=== PATIENT | female | born 2000 | race Caucasian/White ===

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

== ENCOUNTER 2023-08-16 11:40 | Outpatient (CLI) | payer MEDICAID ==
[~2023-08-16] VITALS: Ht 162.6 cm; Wt 70.9 kg
--- NOTE | 2023-08-16 12:00 | NUR ---
PT AMBULATORY TO UNIT WITH SPOUSE AND CHILD. INFORMED PT THAT CHILDREN ARE NOT ALLOWED SO IF SHE STAYS, THEY NEED TO MAKE ARANGEMENTS. PT AGREED. REPORTS CTX Q5 MINUTES, LOF, POSITIVE MOVEMENT. NO VAGINAL BLEEDING. SVE 3/-3, AMNITRACE NEGATIVE. PT TOLERATED WELL. VS STABLE. EFM CAT 1.
[2023-08-16] MEDS ORDERED: PRENATAL TABLET PO (12:17)
[2023-08-16] MEDS ORDERED: LR 1,000 ML IV PRN (12:30)
[2023-08-16 13:00] VITALS: BP 134/78; PULSE 91; TEMP 98
--- NOTE | 2023-08-16 13:00 | NUR ---
DR. ZELAYA ON UNIT. DICUSSED UNCHANGED SVE. DR. ZELAYA GAVE D/C ORDER. DISCUSSED PT APT THIS AFTERNOON IN OFFICE, TOLD RN PT COULD CANCEL APT SINCE SHE WAS SEEN TODAY.
--- NOTE | 2023-08-16 13:32 | NUR ---
TOLD PT TO CALL AND COME BACK TO HOSPITAL IF SHE HAS BRIGHT RED BLEEDING, PAIN IN HER ABDOMEN THAT DOES NOT COME IN "WAVES" LIKE CONTRACTIONS, DECREASED FM, LOF, OR INCREASE IN CTX PAIN AND FREQUENCY.
== END 2023-08-16 13:10 | disposition home or self-care (01) ==
LOC: LDRO 11:40
DX: Z34.93 Encounter for supervision of normal pregnancy, unspecified, third trimester (principal); Z3A.38 38 weeks gestation of pregnancy

== ENCOUNTER 2023-08-17 02:18 | Inpatient (IN) | payer MEDICAID ==
[~2023-08-17] VITALS: Ht 162.6 cm; Wt 71.0 kg
[2023-08-17] VITALS (21 sets, daily range): BP systolic 121–148; BP diastolic 62–99; PULSE 57–94; TEMP 97.8–98.7
[~2023-08-17 02:18] MED LIST changes: +PRENATAL TABLET PO
[2023-08-17] MEDS ORDERED: LR 1,000 ML IV SCH ×2 (03:30→04:00)
[2023-08-17] MEDS ORDERED: Azithromycin 500 MG in NS 250 ML IV ONE (03:30)
[2023-08-17] MEDS ORDERED: Phenylephrine 10 MG/ML VIAL ONE (03:38)
[2023-08-17] MEDS ORDERED: ePHEDrine 50 MG/ML VIAL ONE (03:39)
[2023-08-17] MEDS ORDERED: NS 10 ML IV ONE ×2 (03:39→04:33)
[2023-08-17 03:44] LABS: BASO # 0.1 K/mm3 (0.0-0.2); BASO % 0.3 % (0.0-2.0); EOS # 0.1 K/mm3 (0.0-0.7); EOS % 0.4 % (0.0-4.0); GRAN # 12.5 K/mm3 (1.4-6.5); GRAN % 77.1 % (42.2-75.2); HEMATOCRIT 38.8 % (35.0-45.0); HEMOGLOBIN 12.8 g/dl (12.0-15.0); LYMPH # 2.2 K/mm3 (1.2-3.4); LYMPH % 13.7 % (20.0-51.0); MEAN CELL VOLUME 90 fl (80.0-95.0); MEAN CORPUSCULAR HEMOGLOBIN 30 pg (26-32); MEAN CORPUSCULAR HGB CONC 33 g/dl (33.0-37.0); MEAN PLATELET VOLUME 10.9 fl (7.4-10.4); MONO # 1.3 K/mm3 (0.1-0.6); PLATELET COUNT 273 K/mm3 (130-400); RED BLOOD COUNT 4.32 M/mm3 (4.10-5.30); REDCELL DISTRIBUTION WIDTH-CV 12.3 % (11.5-14.5)
[2023-08-17] MEDS ORDERED: Ondansetron 4 MG/2 ML VIAL IV SCH (04:00)
--- NOTE | 2023-08-17 04:00 | NUR ---
0245- PT TO UNIT VIA WHEELCHAIR WITH COMPLAINTS OF CTX. PT WAS SEEN EARLY TODAY FOR SAME COMPLAINTS AND WAS SENT HOME DUE TO UNCHANGED SVE OF /-2. PT ORIENTED TO ROOM, CHANGED INTO GOWN. EFM X2 APPLIED, VS OBTAINED, SVE NOW OF 3-80/-2. PT VERY UNCOMFORTABLE AND TEARFUL WITH CONTRACTIONS. PT INTENDED TO TOLAC WITH THIS DELIVERY BUT WOULD NOW LIKE TIME TO DISCUSS WITH FOB OPTION OF REPEAT C/S. 0310- PT AND FOB REQUESTS TO HAVE REPEAT C/S. 0314- DR. ZELAYA NOTIFIED OF PT ARRIVAL AND REQUEST FOR REPEAT C/S. SEE PHYSICIAN NOTIFICATION. 0340- DR. ZELAYA IN ROOM TO DISCUSS C/S WITH PT AND SPOUSE. CLIP AND ABDOMINAL SCRUB PERFORMED. 0400- MONITORING DC'D, PT AMBULATORY TO OR FOR NON-SCHEDULED REPEAT C/S.
[2023-08-17] MEDS ORDERED: fentaNYL 50 MCG/ML 2 ML VIAL ONE (04:20)
[2023-08-17] MEDS ORDERED: Oxytocin 10 UNITS/ML VIAL ONE (04:20)
[2023-08-17] MEDS ORDERED: Ketorolac 30 MG/ML VIAL ONE (04:21)
[2023-08-17] MEDS ORDERED: dexAMETHasone 10 MG/ML VIAL ONE (04:33)
[2023-08-17] MEDS ORDERED: Magnes Hydrox (MOM) 80 MG/ML 30 ML CUP PO PRN (05:00)
[2023-08-17] MEDS ORDERED: Loratadine 10 MG TAB PO PRN (05:00)
[2023-08-17] MEDS ORDERED: Ondansetron 4 MG/2 ML VIAL IV PRN (06:15)
[2023-08-17] MEDS ORDERED: Measles/Mumps/Rubella Virus Vaccine Live w Diluent 0.5 ML VIAL SQ SCH (06:15)
[2023-08-17] MEDS ORDERED: oxyCODONE 5 MG TAB PO PRN (06:15)
[2023-08-17] MEDS ORDERED: Morphine 4 MG/ML VIAL IV PRN (06:15)
[2023-08-17] MEDS ORDERED: LR 1,000 ML IV PRN (06:15)
[2023-08-17] MEDS ORDERED: Acetaminophen 500 MG TAB PO SCH (06:15)
[2023-08-17] MEDS ORDERED: Naloxone 0.4 MG/ML VIAL IV PRN (06:15)
[2023-08-17] MEDS ORDERED: Sennosides/Docusate 8.6-50 MG TAB PO SCH (08:00)
[2023-08-17] MEDS ORDERED: Prenatal Vitamins/Iron/FA TAB PO SCH (09:00)
[2023-08-17] MEDS ORDERED: Ibuprofen 600 MG TAB PO SCH (10:51)
--- NOTE | 2023-08-17 10:51 | NUR ---
Initial visit; Patient thanked [employer]ner for offering congratulations and God's blessings for the of her son. [employer]ner thanked mom for choosing [facility].
--- NOTE | 2023-08-17 12:29 | NUR ---
PT FULL FEELING OF LEGS RETURNED.PT AMBULATES INTO THE BATHROOM FOR PERICARE.ON WAY TO BATHROOM AMBULATING,PT BEGINS TO SWAY AND FEEL LIGHTHEADED.THIS RN CALLS JULIETTE JUNIOR FOR ASSIST.PT MAKES IT TO THE TOILET AND PERICARE PERFORMED.MESH PANTIES AND PAD APPLIED.PT DENIES HEADACHES AND DIZZINESS.PT AMBULATES WITH EASE BACK TO BED.BINDER PLACED ON PT.PT EDUCATED TO CALL FOR ASSIST FROM NURSING STAFF WHEN AMBUALTING.PT VERBALIZES UNDERSTANDING.
[2023-08-17] MEDS ORDERED: traZODone 50 MG TAB PO PRN (21:00)
[2023-08-18] MEDS ORDERED: TYLENOL 500MG500 MG PO (08:01)
[2023-08-18] MEDS ORDERED: ROXICODONE 55 MG/TAB PO (08:01)
[2023-08-18] MEDS ORDERED: IBU600 MG PO (08:01)
[2023-08-18 08:42] VITALS: BP 122/68; PULSE 76; TEMP 98.1
[2023-08-18 12:16] LABS: HEMOGLOBIN 10.9 g/dl (12.0-15.0)
--- NOTE | 2023-08-18 13:06 | NUR ---
pt give both written and verbal discharge instructions. pt encouraged to keep all follow up appointments. Pt verbalizes understanding and has no questions at this time.
--- NOTE | 2023-08-18 13:17 | NUR ---
PT DECLINES tdapp vaccine
== END 2023-08-18 13:40 | disposition home or self-care (01) | DRG 788 ==
LOC: LDRO 02:18 → OB 03:18
PROVIDERS: ADMIT Obstetrics & Gynecology
PROC: 10D00Z1 Extraction of Products of Conception, Low, Open Approach (ICD-10-PCS; principal; 2023-08-17)
DX: O34.211 Maternal care for low transverse scar from previous cesarean delivery (principal); Z3A.38 38 weeks gestation of pregnancy; Z37.0 Single live birth
CPT/HCPCS: J0456; J0665; J0690; J1100; J1885; J2371; J2405; J2590; J2765; J3010; J7050; J7120